=== PATIENT | female | born 1975 | race American Indian/Alaskan Native ===

== ENCOUNTER 2016-07-22 10:54 | Outpatient (CLI) | payer OTHER ==
--- NOTE | 2016-07-22 13:20 | Mammography Report ---
BILATERAL MAMMOGRAM: FINDINGS: Baseline mammogram. The breast tissue is heterogeneously dense, which could obscure detection of small masses (approximately 50%-75% glandular). No mass, distortion, suspicious calcification, or skin change is seen. CAD was utilized. IMPRESSION: Negative mammogram. There is no mammographic evidence of malignancy. RECOMMENDATION: Follow-up per ACS guidelines. BI-RADS CATEGORY: 1 = Negative ACR BI-RADS MAMMOGRAPHIC CODES: 0 = Needs additional imaging evaluation; 1 = Negative; 2 = Benign; 3 = Probably benign; 4 = Suspicious; 5 = Malignant; 6 = Known biopsy-proven malignancy COMMENT: 1. Dense breast tissue, i.e., adenosis, fibrocystic changes, etc., may obscure an underlying neoplasm. 2. Approximately 10% of cancers are not detected with mammography. 3. A negative mammography report should not delay biopsy if a clinically suspicious mass is present. COMMENT: Patient follow-up letters are generated in [employer].
== END 2016-07-22 10:55 | disposition home or self-care (01) ==
LOC: SPVWC 10:54
PROVIDERS: ATTEND Family Medicine
DX: Z12.31 Encounter for screening mammogram for malignant neoplasm of breast (principal)
CPT/HCPCS: 77067; G0202

== ENCOUNTER 2017-09-05 12:41 | Emergency (ER) | payer OTHER ==
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
--- NOTE | 2017-09-05 19:41 | XRay Report ---
FINAL REPORT PROCEDURE: Cervical spine. TECHNIQUE: Three views. HISTORY: bilateral cervial tenderness COMPARISON: No prior studies are available for comparison. FINDINGS: The cervical vertebrae have normal height and satisfactory alignment. There are no fractures. There is no subluxation. The disc spaces are well maintained. The prevertebral soft tissues have normal thickness. IMPRESSION: No significant abnormality.
[2017-09-05] MEDS ORDERED: ULTRAM PO ONE (19:59)
[2017-09-05] MEDS ORDERED: NORVASC PO ONE (20:08)
[2017-09-05 20:23] VITALS: BP 161/94
== END 2017-09-05 20:34 | disposition home or self-care (01) ==
LOC: ED 12:41
DX: S16.1XXA Strain of muscle, fascia and tendon at neck level, initial encounter (principal); S39.012A Strain of muscle, fascia and tendon of lower back, initial encounter; I10 Essential (primary) hypertension; F17.200 Nicotine dependence, unspecified, uncomplicated; Z88.0 Allergy status to penicillin; V49.09XA Driver injured in collision with other motor vehicles in nontraffic accident, initial encounter; Y93.89 Activity, other specified; Y92.488 Other paved roadways as the place of occurrence of the external cause; Y99.8 Other external cause status
CPT/HCPCS: 72040; 72100